=== PATIENT | male | born 1955 | race Caucasian/White ===

== ENCOUNTER 2023-05-13 06:17 | Day surgery (SDC) | payer OTHER ==
[2023-05-08 08:42] LABS: PH,URINE 5.5 (5.0-8.0); URINE APPEARANCE Clear; URINE BILIRRUBIN Negative (NEGATIVE); URINE BLOOD Negative; URINE COLOR Yellow; URINE GLUCOSE Negative (NEGATIVE); URINE LEUKOCYTE Negative; URINE NITRATE Negative; URINE PROTEIN Negative (NEGATIVE); URINE UROBILINOGEN 0.2 E.U./dl
[2023-05-08 08:44] LABS: HEMATOCRIT 40.8 % (39.0-48.0); HEMOGLOBIN 14.1 g/dL (13-16.00); MEAN CORPUSCULAR HEMOGLOBIN 33.9 pg (27.00-32.0); MEAN CORPUSCULAR HGB CONC 34.6 g/dl (32.0-36.0); PLATELET COUNT 232 K/uL (150-450); RED BLOOD COUNT 4.16 M/uL (4.00-6.00); RED CELL DISTRIBUTION WIDTH 13.7 % (11.5-14.5)
[2023-05-08 08:46] LABS: URINE RBC 2.5 uL (0.0-20.8)
[2023-05-08 08:54] LABS: URINE BACTERIA 1.2 uL (0.0-1933); URINE EPITHELIAL CELLS 0.3 uL (0.0-38.8); URINE WBC 0.7 uL (0.0-23.2)
[2023-05-08 09:02] LABS: INR 1.07; PARTIAL THROMBOPLASTIN TIME 29.8 SECONDS (22.0-34.0); PROTHROMBIN TIME 11.2 SECONDS (9.0-11.5)
[2023-05-08 09:07] LABS: ALBUMIN 3.8 gm/dL (3.4-5.0); BILIRUBIN TOTAL 0.64 mg/dL (0.3-1.2); CREATININE SERUM 0.83 mg/dL (0.70-1.30); GFR 91.59; GLOBULINA 3.6 G/DL (2.4-3.5); POTASSIUM 3.93 mEq/L (3.5-5.1); TOTAL PROTEIN 7.4 gm/dL (6.4-8.2)
[~2023-05-13 06:17] MED LIST: ADULT LOW DOSE81 M1; AMLODIPINE-OLM1 EAC2; AVAPRO150 MG; AVAPRO150 MG PO; SIMVASTATIN5 MG; TOPROL XL50 M1
[2023-05-13] MEDS ORDERED: TRAMADOL HCL50 MG PO (13:59)
[2023-05-13] MEDS ORDERED: TAMS0.4C PO (14:00)
[2023-05-13] MEDS ORDERED: SURFAK240 MG PO (14:00)
[2023-05-13] MEDS ORDERED: NEURONTIN800 MG PO (14:00)
[2023-05-13] MEDS ORDERED: MORGIDOX100 MG PO (14:01)
== END 2023-05-13 17:35 | disposition home or self-care (01) ==
LOC: CIR.AMB 06:17 → LAB 07:27 → CIR.AMB 10:00
PROVIDERS: ATTEND Surgery
DX: K40.90 Unilateral inguinal hernia, without obstruction or gangrene, not specified as recurrent (principal); D17.6 Benign lipomatous neoplasm of spermatic cord; I10 Essential (primary) hypertension; Z20.822 Contact with and (suspected) exposure to COVID-19
CPT/HCPCS: 49505; C1781